=== PATIENT | female | born 1945 | race Caucasian/White ===

== ENCOUNTER 2020-08-26 06:17 | Outpatient (RCR) | payer OTHER ==
[~2020-08-26] VITALS: Ht 152.4 cm; Wt 88.6 kg
[2020-08-26] MEDS ORDERED: CARV3.122 PO (13:48)
[2020-08-26] MEDS ORDERED: GLIP2.5T15 PO (13:48)
[2020-08-26] MEDS ORDERED: ATOR40TA70 PO (13:48)
[2020-08-26] MEDS ORDERED: ASPI-999 PO (13:48)
[2020-08-26] MEDS ORDERED: METF-399 PO (13:48)
[2020-08-26] MEDS ORDERED: AMLO2.5T4 PO (13:48)
== END 2020-08-26 13:57 | disposition home or self-care (01) ==
LOC: PREOP 06:17
PROVIDERS: ATTEND Specialist

== ENCOUNTER 2020-08-30 06:32 | Day surgery (SDC) | payer OTHER, MEDICARE ==
[~2020-08-30] VITALS: Ht 152.4 cm; Wt 88.6 kg
[~2020-08-30 06:32] MED LIST: AMLO2.5T4 PO; ASPI-999 PO; ATOR40TA70 PO; CARV3.122 PO; GLIP2.5T15 PO; METF-399 PO
[2020-08-30] MEDS ORDERED: TIMOLOL MALEATE 0.5% 5 ML (TIMOPTIC) BTL OU PRN (06:45)
[2020-08-30] MEDS ORDERED: LIDOCAINE PF 1% 2 ML VIAL IR PRN (06:45)
[2020-08-30] MEDS ORDERED: POVIDONE (BETADINE) OPHTH SOLN 5% 30 ML OP ONE (06:45)
[2020-08-30] MEDS ORDERED: MOXIFLOXACIN OPHTH SOLN 5 MG/ML 0.3 ML SYRINGE OP ONE (06:45)
[2020-08-30] MEDS: TETRACAINE 0.5% OPHTH SOLN 4 ML BTL (SINGLE DOSE ONLY) OU PRN ×4 (06:48→07:04)
[2020-08-30] MEDS: TROPICAMIDE 1% OPH SOLN (MYDRIACYL) 15 ML BTL OP SCH ×3 (06:54→07:04)
[2020-08-30] MEDS: PHENYLEPHRINE 10% OPHTH (NEO-SYN) 5 ML BTL OU SCH ×3 (06:54→07:04)
[2020-08-30 07:00] VITALS: BP 141/96
[2020-08-30] MEDS ORDERED: MIDAZOLAM 2 MG/2 ML (VERSED) VIAL ONE (07:00)
--- NOTE | 2020-08-30 07:06 | Ophthalmologist Pre-Op Note ---
Pre-Operative Progress Note H&P Reviewed The H&P was reviewed, patient examined and no changes noted. Date H&P Reviewed: Aug 30, 2020 Time H&P Reviewed: 07:05 Pre-Op Dx Cataract, Left Eye JIM LONG MD Aug 30, 2020 07:06
[2020-08-30] MEDS ORDERED: acetaZOLAMIDE ER 500 MG CAP (DIAMOX SEQUELS) PO ONE (07:45)
--- NOTE | 2020-08-30 08:04 | Ophthalmology Operative Report ---
Cataract removal/placement IOL PREOPERATIVE DIAGNOSIS: Cataract Left Eye POSTOPERATIVE DIAGNOSIS: Cataract Left Eye PROCEDURE: Cataract removal and placement of posterior chamber implant, left eye SURGEON: Kang Long ANESTHESIA: Topical with sedation COMPLICATIONS: None ESTIMATED BLOOD LOSS: Minimal DESCRIPTION OF PROCEDURE: After proper informed consent was obtained, the patient, a [id number] female, was taken to the Operating Room and the left eye was anesthetized with tetracaine. The left eye was then prepped and draped in the usual manner. A wire lid speculum was placed. A paracentesis was made at the left hand position. Preservative free lidocaine was injected into the anterior chamber followed by viscoelastic. A clear corneal incision was made in the temporal position. A capsulorrhexis was preformed and the central nuclear and cortical material were removed. The posterior capsule was polished and an Jamari 23.0 [id number] was placed into the capsular bag. The residual viscoelastic was aspirated and balanced saline solution was injected into the anterior chamber. Moxifloxacin was injected into the anterior chamber. The wound was checked and found to be water tight. The patient tolerated the procedure well without complications. KANG LONG MD Aug 30, 2020 08:04
[2020-08-30 08:10] VITALS: BP 159/95
--- NOTE | 2020-08-30 09:54 | Anesthesia-General Post-Op ---
MAC Patient Condition Mental Status/LOC: Same as Preop Cardiovascular: Satisfactory Nausea/Vomiting: Absent Respiratory: Satisfactory Pain: Controlled Complications: Absent Post Op Complications Complications None Follow Up Care/Instructions Patient Instructions None needed. Anesthesiology Discharge Order Discharge Order Patient is doing well, no complaints, stable vital signs, no apparent adverse anesthesia problems. No complications reported per nursing. PAM JUAREZ CRNA Aug 30, 2020 09:54
== END 2020-08-30 08:10 | disposition home or self-care (01) ==
LOC: SDC 06:32
PROVIDERS: ATTEND Specialist
DX: H25.12 Age-related nuclear cataract, left eye (principal); E11.36 Type 2 diabetes mellitus with diabetic cataract; I10 Essential (primary) hypertension; Z79.84 Long term (current) use of oral hypoglycemic drugs; Z79.899 Other long term (current) drug therapy; Z87.891 Personal history of nicotine dependence
CPT/HCPCS: 66984; 82962; V2632